=== PATIENT | female | born 1960 | race Caucasian/White ===

== ENCOUNTER 2017-04-07 15:46 | Inpatient (IN) | payer OTHER ==
[~2017-04-07] VITALS: Ht 160 cm; Wt 82.2 kg
[~2017-04-07 15:46] MED LIST: ASPI-605 PO; FLUO10CA26 PO; UNK HTN MED; WARF1TAB47 PO
--- NOTE | 2017-04-07 15:46 | NUR ---
[id number] from home: SOB, albuterol given in field with some relief. nad noted. pt aao x4, amb with steady gait. pt placed in gown and monitor. dr styles at bedside for eval.
[2017-04-07] MEDS ORDERED: Magnesium 1GM/D5W 100ML PREMIX 200 ML IV ONE ×2 (15:47→15:53)
[2017-04-07] MEDS ORDERED: IPRATROPIUM NEB FS 0.5 MG/2.5 ML AMPUL.NEB ONE (15:49)
[2017-04-07] MEDS ORDERED: ALBUTEROL FS 2.5 MG/3 ML VIAL.NEB ONE ×2 (15:49→18:18)
--- NOTE | 2017-04-07 15:50 | NUR ---
PT HAS LAC #20 IV ACCESS MOLD MAKER PLASTIC MOLDS. BLOOD SAMPLE COLLECTED SENT TO LAB
[2017-04-07] MEDS ORDERED: DEXAMETHASONE SOD PHOSPHATE 10 MG/ML VIAL ONE (15:52)
[2017-04-07] MEDS ORDERED: ALBUTEROL FS 2.5 MG/3 ML VIAL.NEB CONTNEB ONE (16:00)
[2017-04-07] MEDS ORDERED: DEXAMETHASONE SOD PHOSPHATE 10 MG/ML VIAL IV ONE (16:00)
[2017-04-07] MEDS ORDERED: IV NS 0.9% 500 ML IV ONE (16:00)
[2017-04-07] MEDS ORDERED: IPRATROPIUM NEB FS 0.5 MG/2.5 ML AMPUL.NEB NEB ONE (16:00)
[2017-04-07 16:07] LABS: BASOPHILS # (AUTO) 0.1 /CMM (0.0-0.2); BASOPHILS % (AUTO) 1.3 % (0.0-2.0); EOSINOPHILS # (AUTO) 0.3 /CMM (0.0-0.7); EOSINOPHILS % (AUTO) 3.3 % (0.0-6.0); HEMATOCRIT 39 % (33-45); HEMOGLOBIN 12.9 g/dL (11.5-14.8); LYMPHOCYTES # (AUTO) 2.9 /CMM (0.8-4.8); LYMPHOCYTES % (AUTO) 36.8 % (20.0-44.0); MEAN CORPUSCULAR HEMOGLOBIN 29 PG (26.0-33.0); MEAN CORPUSCULAR HGB CONC 33 g/dl (31.0-36.0); MEAN CORPUSCULAR VOLUME 88 fL (82-100); MONOCYTES # (AUTO) 0.5 /CMM (0.1-1.30); MONOCYTES % (AUTO) 6.6 % (2.0-12.0); NEUTROPHILS # (AUTO) 4.1 /CMM (1.8-8.9); PLATELET COUNT (AUTO) 236 /CMM (150-450); RDW COEFFICIENT OF VARIATION 13.9 (11.5-15.0); RED BLOOD CELL COUNT(AUTO) 4.44 MIL/uL (4.0-5.2); WHITE BLOOD COUNT (AUTO) 7.9 K/uL (4.3-11.0)
[2017-04-07] MEDS ORDERED: FLUO-120 PO (16:17)
[2017-04-07] MEDS ORDERED: CHLO25TA2 PO (16:17)
[2017-04-07] MEDS ORDERED: ATOR10TA PO (16:17)
[2017-04-07 16:28] LABS: CALCIUM, SERUM 8.8 mg/dL (8.5-10.1); CARBON DIOXIDE 27 mmol/L (21-32); CHLORIDE 105 mmol/L (98-107); CREATININE 0.7 mg/dL (0.6-1.3); GLUCOSE 100 mg/dL (74-106); POTASSIUM 3.4 mmol/L (3.5-5.1); SODIUM SERUM 142 mmol/L (136-145); UREA NITROGEN, BLOOD 9 mg/dL (7-18)
[2017-04-07 16:35] LABS: TROPONIN I < 0.017 ng/mL (0.00-0.056)
[2017-04-07 16:40] LABS: B-TYPE NATRIURETIC PEPTIDE 13 PG/ML (0-125)
[2017-04-07] MEDS ORDERED: POTASSIUM CHLORIDE 20 MEQ TAB.PRT.SR PO ONE ×2 (17:00→17:17)
[2017-04-07] MEDS ORDERED: IV NS 0.9% 250 ML IV ONE (17:07)
[2017-04-07] MEDS ORDERED: IOHEXOL-350 100 ML VIAL IV ONE (17:07)
--- NOTE | 2017-04-07 17:10 | NUR ---
PT TAKENT TO CT
--- NOTE | 2017-04-07 17:33 | NUR ---
potassium po given as ordered.
[2017-04-07] MEDS ORDERED: ALBUTEROL FS 2.5 MG/3 ML VIAL.NEB NEB ONE (18:30)
--- NOTE | 2017-04-07 19:02 | NUR ---
PAGED DR RAWLS FOR PANEL ADMISSION
[2017-04-07] MEDS ORDERED: ZOLPIDEM TARTRATE 5 MG TABLET PO PRN (20:30)
[2017-04-07] MEDS ORDERED: ONDANSETRON HCL/PF 4 MG/2 ML VIAL IVP PRN (20:30)
[2017-04-07] MEDS ORDERED: HYDROCODONE/APAP 5/325MG 1 EACH TABLET PO PRN (20:30)
[2017-04-07] MEDS ORDERED: ACETAMINOPHEN 325 MG TABLET PO PRN (20:30)
[2017-04-07] MEDS ORDERED: Z GUARD REMEDY 2 OZ OINT TP PRN (20:30)
[2017-04-07] MEDS ORDERED: MAGNESIUM HYDROXIDE 30 ML UDC PO PRN (20:30)
[2017-04-07] MEDS ORDERED: MAG HYDROX/AL HYDROX/SIMETH 30 ML UDC PO PRN (20:30)
--- NOTE | 2017-04-07 20:38 | NUR ---
Report given to Radha BAIN for medsurg admission and tonio.
[2017-04-07 20:45] VITALS: BP 151/88
--- NOTE | 2017-04-07 20:57 | NUR ---
TRANSFERRED TO [facility] VIA ALS PROTOCOL, NO INCIDENT NOTED. ERMIAS MEI AT BEDSIDE.
[2017-04-07] MEDS ORDERED: ALBUTEROL FS 2.5 MG/3 ML VIAL.NEB NEB SCH (21:00)
--- NOTE | 2017-04-07 21:00 | NUR ---
TELE STROKE PROGRAM COORDINATOR INITIAL NOTES RECEIVED PT FROM ER VIA MELODY ACCOMPANIED BY ER NURSE AND TECH. DX OF ASTHMA EXACERBATION. PT IS ALERT AND ORIENTED ,AMBULATORY. NO SOB NOTED AT THIS TIME. WITH O2 AT 2 LITERS VIA NC. PT AWARE WHERE SHE AT BUT SHE SEEMS WORRIED ABOUT HER DAD THAT'S IN THE DIFF H[facility] AT THIS TIME. SPOKE TO HER TO RELIEVED HER WORRIES AND AT THE SAME TIME OFFERED SOME THING TO EAT. AFTER SHE ATE SHE SHE STARTED ANSWERING MY QUESTION . ASSESSMENT DONE AND RECORDED. APPLIED TELE AND TOLD HER REGARDING THE PURPOSE OF IT AND PT UNDERSTOOD WELL.KEPT HER WARM AND COMFORTABLE AT ALL TIMES. PLACE CALL LIGHT AT REACH. WILL CONTINUE TO MONITOR.
[2017-04-07 21:22] VITALS: BP 151/88
[2017-04-07] MEDS: FLUOXETINE HCL 20 MG CAPSULE PO SCH (22:13)
--- NOTE | 2017-04-07 23:30 | NUR ---
TELE OIL FURNACE INSTALLER NOTES MADE ROUNDS WITH DR RAWLS NO ADDITIONAL ORDERS AT THIS TIME.
[2017-04-08 00:47] VITALS: BP 115/70
[2017-04-08 04:38] VITALS: BP 112/70
[2017-04-08 07:04] VITALS: BP 120/70
[2017-04-08 07:11] LABS: HEMATOCRIT 38 % (33-45); HEMOGLOBIN 12.6 g/dL (11.5-14.8); LYMPHOCYTES # (AUTO) 0.8 /CMM (0.8-4.8); LYMPHOCYTES % (AUTO) 6.6 % (20.0-44.0); MEAN CORPUSCULAR HEMOGLOBIN 30 PG (26.0-33.0); MEAN CORPUSCULAR HGB CONC 33 g/dl (31.0-36.0); MEAN CORPUSCULAR VOLUME 90 fL (82-100); MONOCYTES # (AUTO) 0.3 /CMM (0.1-1.30); MONOCYTES % (AUTO) 2.8 % (2.0-12.0); NEUTROPHILS # (AUTO) 10.5 /CMM (1.8-8.9); NEUTROPHILS % (AUTO) 90.6 % (43.0-81.0); PLATELET COUNT (AUTO) 254 /CMM (150-450); RED BLOOD CELL COUNT(AUTO) 4.24 MIL/uL (4.0-5.2); WHITE BLOOD COUNT (AUTO) 11.6 K/uL (4.3-11.0)
[2017-04-08] MEDS: IPRATROPIUM NEB FS 0.5 MG/2.5 ML AMPUL.NEB NEB SCH ×5 (07:23→23:41)
[2017-04-08] MEDS: ALBUTEROL FS 2.5 MG/3 ML VIAL.NEB NEB SCH ×5 (07:23→23:41)
--- NOTE | 2017-04-08 07:24 | NUR ---
COMBAT SYSTEMS ENGINEER/CLOSING NOTES PT AWAKE AT THIS TIME, NO SOB NOTED, SLEPT WELL AND ALL DUE MEDS GIVEN. STABLE TANNA THE NIGHT. RESPIRATORY THERAPY IN THE ROOM AND STARTED GIVING TREATMENT ORDERED. TELE SR PER MONITOR. KEPT HER COMFORTABLE AT ALL TIMES. ENDORSE TO AM NURSE FOR CONTINUITY OF CARE. PLACE CALL LIGHT AT REACH.
--- NOTE | 2017-04-08 07:30 | NUR ---
JUNIOR ANALYST Notes: - Received patient on bed with O2 at 2 l/min via nasal cannula, fully awake, & oriented x 4, denies pain when asked. On TELE continously on SR.
[2017-04-08 07:50] LABS: CALCIUM, SERUM 8.9 mg/dL (8.5-10.1); CREATININE 0.7 mg/dL (0.6-1.3); MAGNESIUM 2.3 mg/dL (1.8-2.4); PHOSPHORUS 2.4 mg/dL (2.5-4.9); POTASSIUM 4.7 mmol/L (3.5-5.1)
[2017-04-08] MEDS: ASPIRIN EC 81 MG TABLET.DR PO SCH (08:17)
[2017-04-08] MEDS: methylPREDNISolone SOD SUCC 40 MG/ML VIAL IV SCH ×2 (08:17→16:25)
[2017-04-08] MEDS: ATORVASTATIN 10 MG TABLET PO SCH (08:18)
[2017-04-08 12:00] VITALS: BP 122/70
--- NOTE | 2017-04-08 12:25 | NUR ---
ADMINISTRATIVE RECEPTIONIST NOTES: -Visited by Dr. Art , patient c/o dryness of eyes, a dry cough & to continue the diuretic med taken at home.
[2017-04-08] MEDS ORDERED: K PHOS NEUTRAL 250 MG TABLET PO ONE ×2 (13:00→16:30)
[2017-04-08 16:00] VITALS: BP 117/66
[2017-04-08] MEDS: CHLORTHALIDONE 25 MG PO SCH (16:44)
[2017-04-08] MEDS ORDERED: POLYVINYL ALCOHOL 15 ML BOTTLE EACHEYE PRN (18:00)
--- NOTE | 2017-04-08 18:26 | NUR ---
FORENSIC AUDIT EXPERT Notes: - Patient had dinner , continously on O2 at 2l/min, via nasal cannula, occasionally has a dry cough, & had ambulated to hallway per request to avoid boredom. No pain verbalization , but is cooperative to breathing treatments as ordered.
--- NOTE | 2017-04-08 19:30 | NUR ---
MENHADEN VESSEL PILOT OPENING NOTES: PATIENT SITTING ON BED, AOX4, ON ROOM AIR AT THIS TIME, BREATHING EVEN AND UNLABORED. PATIENT DENIES ANY , NO SOB NOTED, PATIENT WANTS TO WALK AROUND. ON TELE MONITORING WITH SR AT RATE OF 80S. PIV OVER LAC G 20 INTACT AND PATENT TO FLUSH. PROVIDED FOR COMFORT AND SAFETY. WILL CONT TO MONITOR.
--- NOTE | 2017-04-08 19:35 | NUR ---
RN NOTES: PATIENT'S PIV GOT DISLODGED ACCIDENTALLY. NEW PIV ACCESS INSERTED AT RAC, G22 BY AM NURSE. WILL CONT TO MONITOR.
[2017-04-08 20:00] VITALS: BP 126/78
[2017-04-08] MEDS: GUAIFENESIN/D-METHORPHAN HB 5 ML UDC PO PRN (20:19)
[2017-04-08] MEDS: FLUOXETINE HCL 20 MG CAPSULE PO SCH (22:00)
--- NOTE | 2017-04-08 22:05 | NUR ---
RN NOTES: PATIENT REFUSED TO TAKE HER SCHEDULED PROZAC FOR 2200 PM, SHE STATES THAT SHE USUALLY TAKES IT IN THE AM, AND THAT TAKING IT AT HS WILL CAUSE HER TO LOSE SLEEP. CALLED DR RAWLS, SCHEDULE CHANGED TO 0900 AM.
[2017-04-09] VITALS (9 sets, daily range): BP systolic 122–137; BP diastolic 70–83
[2017-04-09] MEDS: ALBUTEROL FS 2.5 MG/3 ML VIAL.NEB NEB SCH ×6 (03:30→22:52)
[2017-04-09] MEDS: IPRATROPIUM NEB FS 0.5 MG/2.5 ML AMPUL.NEB NEB SCH ×6 (03:30→22:52)
[2017-04-09] MEDS: GUAIFENESIN/D-METHORPHAN HB 5 ML UDC PO PRN (05:59)
--- NOTE | 2017-04-09 06:02 | NUR ---
RN NOTES: PATIENT NOTED TO HAVE WHEEZING. RT CALLED FOR BREATHING TREATMENT.
--- NOTE | 2017-04-09 07:00 | NUR ---
PREPRESS SPECIALIST CLOSING NOTES: PATIENT IN BED, AOX4, ON O2 AT 2 LPM VIA NC. BREATHING EVEN AND UNLABORED. BREATH SOUNDS WITH SLIGHT EXPIRATORY WHEEZING. RT CALLED FOR BREATHING TREATMENT AT 0600 AM BUT PATIENT REFUSED BREATHING TREATMENT, SAYING SHE WNATS TO SLEEP. OCCASIONAL COUGHING ALSO NOTED THROUGH SHIFT. DUE MEDS GIVEN. PIV OVER RAC G 22 INTACT AND PATENT TO FLUSH. PROVIDED FOR COMFORT AND SAFETY. NO ACUTE CHANGE IN CONDITION NOTED THROUGH SHIFT. PROVIDED FOR COMFORT AND SAFETY. ON TELE MONITORING WITH SR AT RATE OF 80S. WILL ENDORSE TO AM RN FOR BRITT.
--- NOTE | 2017-04-09 07:19 | NUR ---
MS/RN Patient received Patient received from field artillery radar operator. Noted with some wheezing, remains on 2l oxygen via nasal cannula. Denies any shortness of breath at this time. All needs attended, call light within reach, will continue to monitor.
[2017-04-09] MEDS: ATORVASTATIN 10 MG TABLET PO SCH (08:39)
[2017-04-09] MEDS: ASPIRIN EC 81 MG TABLET.DR PO SCH (08:39)
[2017-04-09] MEDS: FLUOXETINE HCL 20 MG CAPSULE PO SCH (08:39)
[2017-04-09] MEDS: methylPREDNISolone SOD SUCC 40 MG/ML VIAL IV SCH ×2 (08:40→16:21)
--- NOTE | 2017-04-09 08:49 | NUR ---
MS/RN Medications Morning medications administered as ordered.
[2017-04-09] MEDS: CHLORTHALIDONE 25 MG PO SCH (09:00)
--- NOTE | 2017-04-09 09:30 | NUR ---
MS/machine steak tenderizer Head to toe assessment carried out, see med/surg flowsheet.
--- NOTE | 2017-04-09 12:20 | NUR ---
MS/RN S/B Dr Art Seen by Dr Art - labs ordered for tomorrow. To continue with current plan of care.
[2017-04-09] MEDS: AMOX/CLAVULANATE 875 MG TABLET PO SCH ×2 (13:53→20:52)
--- NOTE | 2017-04-09 14:03 | NUR ---
MS/RN New medications New order given to start amoxillin, first dose given.
--- NOTE | 2017-04-09 18:22 | NUR ---
MS/RN End note Patient remains without any episodes of acute shortness of breath, saturation on room air 95%. Denies any pain or discomfort. Patient requesting for oral antibiotic to be changed to IV, will follow up with Dr Art. Will endorse to retail shift manager.
--- NOTE | 2017-04-09 20:00 | NUR ---
RN NOTES RECEIVED PT AWAKE ON BED, A/OX3, SR ON TELE MONITOR [id number], DENIES PAIN, NO SOB, CALL LIGHT WITHIN REACH, SIDERIALS UPX2 CONTINUE TO MONITOR
[2017-04-10] VITALS: BP 135/77
[2017-04-10] MEDS: ALBUTEROL FS 2.5 MG/3 ML VIAL.NEB NEB SCH ×4 (03:16→15:17)
[2017-04-10] MEDS: IPRATROPIUM NEB FS 0.5 MG/2.5 ML AMPUL.NEB NEB SCH ×4 (03:16→15:17)
[2017-04-10 04:00] VITALS: BP 132/78
--- NOTE | 2017-04-10 06:49 | NUR ---
RN NOTES AWAKE, DENIES PAIN, NO SOB, MORNING CARE RENDERED, PT NEEDS ATTENDED.
[2017-04-10 06:55] LABS: HEMATOCRIT 37 % (33-45); HEMOGLOBIN 12.1 g/dL (11.5-14.8); LYMPHOCYTES # (AUTO) 1.1 /CMM (0.8-4.8); LYMPHOCYTES % (AUTO) 6.4 % (20.0-44.0); MEAN CORPUSCULAR HEMOGLOBIN 30 PG (26.0-33.0); MEAN CORPUSCULAR HGB CONC 33 g/dl (31.0-36.0); MEAN CORPUSCULAR VOLUME 91 fL (82-100); MONOCYTES # (AUTO) 0.7 /CMM (0.1-1.30); MONOCYTES % (AUTO) 4.2 % (2.0-12.0); NEUTROPHILS # (AUTO) 14.9 /CMM (1.8-8.9); NEUTROPHILS % (AUTO) 89.4 % (43.0-81.0); PLATELET COUNT (AUTO) 261 /CMM (150-450); RDW COEFFICIENT OF VARIATION 14.6 (11.5-15.0); RED BLOOD CELL COUNT(AUTO) 4.06 MIL/uL (4.0-5.2); WHITE BLOOD COUNT (AUTO) 16.7 K/uL (4.3-11.0)
[2017-04-10 07:11] VITALS: BP 133/76
--- NOTE | 2017-04-10 07:28 | NUR ---
TRAVELING MISSIONARY OPEN NOTES RECEIVED REPORT FROM ELEVATOR WORKER NURSE. PATIENT IS IN BED, ALERT AND ORIENTED TO NAME, TIME AND PLACE. NO SIGNS AND SYMPTOMS OF DISTRESS. DENIED PAIN. BED IN LOW POSITION, LOCKED AND TWO SIDE RAILS ARE UP. WILL CONTINUE TO MONITOR AND ASSESS PATIENT.
[2017-04-10 07:39] LABS: CALCIUM, SERUM 9.3 mg/dL (8.5-10.1); CREATININE 0.7 mg/dL (0.6-1.3); MAGNESIUM 2.1 mg/dL (1.8-2.4); POTASSIUM 4.7 mmol/L (3.5-5.1)
[2017-04-10] MEDS: ASPIRIN EC 81 MG TABLET.DR PO SCH (08:19)
[2017-04-10] MEDS: methylPREDNISolone SOD SUCC 40 MG/ML VIAL IV SCH (08:19)
[2017-04-10] MEDS: AMOX/CLAVULANATE 875 MG TABLET PO SCH (08:19)
[2017-04-10] MEDS: ATORVASTATIN 10 MG TABLET PO SCH (08:19)
[2017-04-10] MEDS: CHLORTHALIDONE 25 MG PO SCH (08:19)
[2017-04-10] MEDS: FLUOXETINE HCL 20 MG CAPSULE PO SCH (08:19)
--- NOTE | 2017-04-10 08:30 | NUR ---
PATIENT COMPLAINS ON IV BURNING WHILE PUSHING MED. IV SITE REMOVED PER PATIENT REQUEST. WILL START A NEW IV SITE SHORTLY
[2017-04-10 12:00] VITALS: BP 119/70
[2017-04-10] MEDS ORDERED: Amox/Clavulanate PO (12:33)
[2017-04-10] MEDS ORDERED: GUAI5SYR PO (12:33)
--- NOTE | 2017-04-10 16:44 | NUR ---
METER TESTER NOTES PATIENT'S DISCHARGE ORDER RECEIVED AND CARRIED OUT. ALL DISCHARGE INSTRUCTIONS EXPLAINED TO PATIENT; PATIENT VERBALIZED UNDERSTANDING. ALL DISCHARGE FORMS SIGNED AND PLACED IN THE CHART. PATIENT IS LEAVING IN A STABLE CONDITION. NO SIGNS AND SYMPTOMS OF DISTRESS. DENIED PAIN. IV SITE REMOVED. ID BAND REMOVED. TELE BOX REMOVED. SKIN IS INTACT. ALL PERSONAL BELONGING WITH PATIENT AT TIME OF DISCHARGE; BELONGING FORM SIGNED AND PLACED IN THE CHART. NEW PRESCRIPTION GAVE TO PATIENT. SKIN IS INTACT. PATIENT WAS ESCORTED TO LOBBY WITH A WHEELCHAIR AND A HOME SCHOOL TEACHER. PATIENT WAS SUPPOSED TO BE PICKED UP BY A FAMILY MEMBER BEFORE BUT HER RIDE NEVER CAME. PATIENT TRANSPORTED HOME VIA TAXI. TAXI VOUCHER PROVIDED TO PATIENT BY [facility].
== END 2017-04-10 16:45 | disposition home or self-care (01) | DRG 141 ==
LOC: ER 15:47 → MED 20:25 → TELE 21:10
PROVIDERS: ADMIT Family Medicine; ATTEND Family Medicine
DX: J45.22 Mild intermittent asthma with status asthmaticus (principal); J96.01 Acute respiratory failure with hypoxia; E83.42 Hypomagnesemia; I10 Essential (primary) hypertension; E66.9 Obesity, unspecified; E78.5 Hyperlipidemia, unspecified; F32.9 Major depressive disorder, single episode, unspecified; F16.90 Hallucinogen use, unspecified, uncomplicated; R73.03 Prediabetes; Z68.32 Body mass index [BMI] 32.0-32.9, adult; Z82.49 Family history of ischemic heart disease and other diseases of the circulatory system; Z83.3 Family history of diabetes mellitus; Z86.711 Personal history of pulmonary embolism; Z86.718 Personal history of other venous thrombosis and embolism; Z86.73 Personal history of transient ischemic attack (TIA), and cerebral infarction without residual deficits; E87.6 Hypokalemia; T48.6X5A Adverse effect of antiasthmatics, initial encounter; Y92.009 Unspecified place in unspecified non-institutional (private) residence as the place of occurrence of the external cause; Z77.22 Contact with and (suspected) exposure to environmental tobacco smoke (acute) (chronic); J06.9 Acute upper respiratory infection, unspecified
CPT/HCPCS: 36415; 71010-TC; 80048-TC; 80061-TC; 83735-TC; 83880; 84100-TC; 84484-TC; 85025-TC; 85378-TC; 87081-TC; 94799-TC; A4606; J1100; J2920; J3475; J7040; J7050; Q9967; Z7610